=== PATIENT | female | born 1995 | race Caucasian/White ===

== ENCOUNTER 2018-07-21 14:34 | Emergency (ER) | payer OTHER ==
[~2018-07-21] VITALS: Ht 185.4 cm; Wt 92.0 kg
[2018-07-21 16:07] VITALS: BP 121/69; PULSE 86; RESP 18; Ht 185.4 cm; Wt 92.0 kg
--- NOTE | 2018-07-21 20:22 | ERD ---
ER Documentation Chief Complaint Chief Complaint SORE THROAT & EAR PAIN X 3 DAYS HPI 22-year-old female, previously healthy, presents to the emergency department complaining of 3 days with sore throat and bilateral ear pain, associated with subjective fever, chest congestion and general malaise. The patient denies shortness of breath, no difficulty swallowing ROS All systems reviewed and are negative except as per history of present illness. Allergies Allergies: Coded Allergies: No Known Allergy (Unverified , 07/21/18) PMhx/Soc Medical and Surgical Hx: pt denies Medical Hx, pt denies Surgical Hx Hx Alcohol Use: No Hx Substance Use: No Hx Tobacco Use: No Smoking Status: Never smoker Physical Exam Vitals Vital Signs Date Temp Pulse Resp B/P (MAP) Pulse Ox O2 O2 Flow FiO2 Time Delivery Rate 07/21/18 98.8 86 18 121/69 98 16:07 (86) Physical Exam Patient is in moderate distress due to cough. EYES: PERRLA, EOMI, injected sclerae EARS: Canals clear, erythematous tympanic membranes THROAT: Erythematous oropharynx. NECK: Supple, No lymphadenopathy. Full ROM without pain or tenderness. HEART: RRR, no rubs, murmurs, clicks or gallops. LUNGS: Bilateral rhonchi to auscultation. ABDOMEN: Soft, non-tender without masses or hepatosplenomegaly. EXTREMITIES: No edema bilaterally. BACK: Full ROM, no deformity, normal back exam NEURO: Cranial nerves grossly intact, no motor or sensory deficit Procedures/MDM At the time of discharge, patient with nontoxic appearance, vital signs stable, no respiratory distress. Differential diagnosis include but not limited to: upper vs lower respiratory infection bacterial/viral/fungal. Asthma, COPD, pneumonitis, allergies, GERD. Less likely pulmonary embolism, cardiac related or malignancy, but still is a possibility. Physical examination and clinical presentation consistent most likely with viral infection with early superimposed bacterial infection. During the ED course the patient remained stable, no new complaints. Treatment options and clinical impression discussed with the patient who agrees with management. The patient is stable to be treated outpatient and will be discharged home. Some side effects of prescribed medications (headache, rash, nausea, vomiting, diarrhea, interactions with other medications) were reviewed. The patient needs to follow up with the primary care provider in the next 48h. If symptoms persist, worsen or new symptoms develop, then patient should return to the ED immediately. Disclaimer: Inadvertent spelling and grammatical errors are likely due to EHR/dictation software use and do not reflect on the overall quality of patient care. Also, please note that the electronic time recorded on this note does not necessarily reflect the actual time of the patient encounter. Departure Diagnosis: Primary Impression: Cough Additional Impression: Fever Condition: Stable Additional Instructions: Thank you very much for allowing us to participate in your care. Your health and safety is our top priority at [facility]. Call your primary care doctor TOMORROW for an appointment during the next 2-4 days and bring all the information and medications prescribed. Have prescriptions filled and follow precisely the directions on the label. If the symptoms get worse and your provider is unavailable, return to the Emergency Department immediately. SHAYY PIERSON MD Jul 21, 2018 20:22
[2018-07-21] MEDS ORDERED: AZIT250T PO (20:29)
[2018-07-21] MEDS ORDERED: IBUP-1561 PO (20:29)
== END 2018-07-21 20:38 | disposition home or self-care (01) ==
LOC: FTE 14:34
DX: R05 Cough (principal)
CPT/HCPCS: 99283